=== PATIENT | female | born 1985 | race Caucasian/White ===

== ENCOUNTER → 2016-12-15 | Outpatient (CLI) | payer OTHER ==
--- NOTE | 2016-12-15 11:52 | PMGORTHO ---
Left tibia and fibula, 2 views, 12/15/2016: History: Pain No fracture or destructive bony lesion is seen. The soft tissues are unremarkable. IMPRESSION: No significant abnormality is detected.
--- NOTE | 2016-12-15 15:45 | RAD ---
PROCEDURE MR of the left tibia HISTORY Mid flores pain for 10 days. COMPARISON None available FINDINGS Intramedullary bone marrow edema identified within the mid to distal diaphysis of the tibia. This is greatest along the posteromedial cortex. There is also a small focus of subcortical low T1 signal suspicious for a tiny incomplete fracture line. There is a thin mantle of surrounding edema/fluid. Muscle tissue is intrinsically intact. No abnormal hematoma or fluid collection is seen. Mild subcutaneous edema along the anterior lower leg. IMPRESSION Marrow edema within the mid to distal tibial diaphysis, most compatible with a small incomplete stress fracture, from repetitive micro trauma. Electronically signed by: Suresh Olsen MD (Dec 15, 2016 15:44:11)
== END | disposition home or self-care (01) ==
LOC: PMGORTHO 09:46
PROVIDERS: ATTEND Nurse Practitioner Gerontology
DX: M79.605 Pain in left leg (principal)
CPT/HCPCS: 73718

== ENCOUNTER → 2016-12-23 | Outpatient (CLI) | payer OTHER ==
[2016-12-23 08:38] LABS: BASO % 1 % (0-3); EOS % 1 % (0-3); HEMATOCRIT 35.6 % (36.0-47.0); HEMOGLOBIN 11.9 g/dL (12.0-15.5); LYMPH # 2.4 x10^3/uL (1.0-4.8); LYMPH % 40 % (24-48); MEAN CORPUSCULAR HEMOGLOBIN 30 pg (25-35); MEAN CORPUSCULAR HGB CONC 33 g/dL (31-37); MEAN CORPUSCULAR VOLUME 90 fL (79-100); MONO % 9 % (0-9); NEUT % 50 % (31-73); PLATELET COUNT 293 x10^3/uL (140-400); RED BLOOD COUNT 3.96 x10^6/uL (3.50-5.40); RED CELL DISTRIBUTION WIDTH 13.7 % (11.5-14.5); WHITE BLOOD COUNT 6.1 x10^3/uL (4.0-11.0)
[2016-12-23 08:56] LABS: ALBUMIN 3.8 g/dL (3.4-5.0); ALBUMIN/GLOBULIN RATIO 1.1 (1.0-1.7); CALCIUM 8.9 mg/dL (8.5-10.1); CREATININE 0.7 mg/dL (0.6-1.0); GFR 97.6; PHOSPHORUS 3.9 mg/dL (2.6-4.7); POTASSIUM 4.2 mmol/L (3.5-5.1); TOTAL BILIRUBIN 0.4 mg/dL (0.2-1.0); TOTAL PROTEIN 7.4 g/dL (6.4-8.2)
== END | disposition home or self-care (01) ==
LOC: LAB 08:20
PROVIDERS: ATTEND Nurse Practitioner Gerontology
DX: M84.362D Stress fracture, left tibia, subsequent encounter for fracture with routine healing (principal)
CPT/HCPCS: 36415; 80053; 82306; 84100; 84443; 85027

== ENCOUNTER → 2017-02-18 | Outpatient (CLI) | payer OTHER ==
[2017-02-18 09:33] LABS: CHOLESTEROL/HDL RATIO 3.1
[2017-02-18 10:41] LABS: BILIRUBIN,URINE NEGATIVE (NEG); GLUCOSE,URINE NEGATIVE (NEG); NITRITE,URINE NEGATIVE (NEG); PH,URINE 5.5; PROTEIN,URINE NEGATIVE (NEG-TRACE); UROBILINOGEN,URINE 0.2 mg/dL (0.2 mg/dL)
[2017-02-18 12:06] LABS: BACTERIA,URINE 0 /HPF (0-FEW); RBC,URINE 0 /HPF (0-2); SQUAMOUS EPITHELIAL CELL,UR OCC /LPF; WBC,URINE 0 /HPF (0-4)
== END | disposition home or self-care (01) ==
LOC: LAB 08:47
PROVIDERS: ATTEND Internal Medicine
DX: Z00.00 Encounter for general adult medical examination without abnormal findings (principal)
CPT/HCPCS: 36415; 80061; 81001